=== PATIENT | female | born 1945 | race Caucasian/White ===

== ENCOUNTER → 2023-09-21 12:45 | Outpatient (REF) | payer OTHER, SELFPAY | LOC: HWRAD 12:45 | PROVIDERS: ATTENDING PHYSICIAN Family Medicine | DX: M81.0 Age-related osteoporosis without current pathological fracture (principal) | CPT/HCPCS: 77080 ==

== ENCOUNTER 2023-09-23 03:54 | Emergency (ER) | payer OTHER, SELFPAY ==
[2023-09-23 03:57] VITALS: BP 114/74
[2023-09-23 04:06] VITALS: BMI 23.8
[2023-09-23 04:24] LABS: % Basophils 0.3 % (0-2); % Eosinophils 1.6 % (0-6); % Immature Granulocytes 0.3 % (0-0.5); % Lymphocytes 27.6 % (20.5-51.1); % Monocytes 9.7 % (1.7-9.3); % Neutrophils 60.5 % (42.2-75.2); Absolute Eosinophils 0.1 10^3/uL (0-0.7); Absolute Lymphocytes 2.1 10^3/uL (1.2-3.4); Absolute Monocytes 0.7 10^3/uL (0.1-0.6); Absolute Neutrophils 4.6 10^3/uL (1.4-6.5); Hematocrit 37.8 % (37.0-47.0); Hemoglobin 12.7 g/dL (12.0-16.0); Mean Corp Hgb Conc. 33.6 g/dL (33.0-37.0); Mean Corpuscular Hgb 31.3 pg (27.0-31.0); Mean Corpuscular Volume 93.1 fL (81.0-99.0); Mean Platelet Volume 9.1 fL (7.4-10.4); Nucleated Red Blood Cells % 0 %; Platelet Count 237 10^3/uL (130-400); Red Blood Cell Count 4.06 10^6/uL (4.20-5.40); Red Cell Dist. Width 12.7 % (11.5-14.5); White Blood Cell Count 7.5 10^3/uL (4.8-10.8)
[2023-09-23 04:30] VITALS: BP 111/71
[2023-09-23 04:46] LABS: Troponin I < 0.012 ng/ml
[2023-09-23 05:00] VITALS: BP 113/85
[2023-09-23 05:30] VITALS: BP 114/71
[2023-09-23 05:57] LABS: ALT (SGPT) 21 U/L (0-35); AST (SGOT) 30 U/L (14-36); Albumin 4.1 g/dl (3.5-5.0); Alkaline Phosphatase 100 U/L (38-126); Blood Urea Nitrogen 24 mg/dl (7-17); Calcium 9.8 mg/dl (8.4-10.2); Carbon Dioxide 27 mmol/L (22-30); Chloride 109 mmol/L (98-107); Estimated Creatinine Clearance 62 ml/min; Glucose 103 mg/dl (70-99); Sodium 139 mmol/L (135-145); Total Bilirubin 0.6 mg/dl (0.2-1.3); eGFR > 60.00
[2023-09-23 06:00] VITALS: BP 109/89
--- NOTE | 2023-09-23 06:10 | ED.GENMED ---
History of Present Illness
General
Chief Complaint: Heart Rate Problem
Source: patient and spouse
Time Seen by Provider: 09/23/23 06:00
Travel History
Have you had any contact with someone who has COVID-19?: No
Do you have any symptoms of coronavirus? Fever > 100 degrees, chills, cough, shortness of breath, sore throat, loss of taste or smell, muscle aches, or headache?: No
History of Present Illness
History of Present Illness:
78-year-old female presents emergency department with an episode of what feels like A-fib to her. She felt perfectly well and she went to bed. She awoke at 1 AM to use the restroom and noticed her heart was racing. This has persisted since 1 AM.
She did have left arm disc for about 30 minutes, never chest discomfort. She denies any symptoms at this time. She denies dyspnea, neck pain, headache, dizziness, chest pain or pressure, abdominal pain, neck pain, nausea, vomiting, diaphoresis, or
other complaints. Patient is fully compliant with her medications including her anticoagulation.
Past History
Past History
ED Past Medical History: Arrthythmia (Paroxysmal atrial fibrillation), HTN, Hypercholesterolemia and Hypothyroidism
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
Social History
Tobacco: Non-smoker
Alcohol: Occasional
Personal:
Living: with family
Employment: Retired
Family History
Family History: Other (Noncontributory)
Phy Exam
Physical Exam
Physical Exam:
GENERAL: Alert , in no apparent distress
EYE: pupils equal and reactive
NECK: Supple, no significant adenopathy.
ENT: o/p clr, mmm.
CARDIAC: Irregularly irregular, tachycardic
LUNGS: Clear breath sounds bilaterally, no acute respiratory distress,
ABDOMEN: Soft, without focal tenderness, no r/g, no cvat
NEUROLOGICAL: Alert and oriented, no focal neuro deficits
SKIN: Warm and dry, skin intact.
MUSCULOSKELETAL: No edema, well perfused.
PSYCH: Normal and appropriate interaction.
Course
Orders/Labs/Results
Orders:
Orders
09/23/23 03:56
EKG [Electrocardiogram (*1)] Urgent
Reason for Study: Palpitations
EKG- Treatment ONCE
09/23/23 04:12
Complete Blood Count/With Diff Urgent
Comprehensive Metabolic Panel Urgent
Troponin I Urgent
09/23/23 06:14
EKG [Electrocardiogram (*1)] Urgent
Reason for Study: Atrial Fibrillation
Other Reason for Exam: converted
09/23/23 06:15
EKG- Treatment ONCE
Abnormal Lab Results
09/23/23
04:12
RBC 4.06 L 10^6/uL
(4.20-5.40)
MCH 31.3 H pg
(27.0-31.0)
Absolute Monos (auto) 0.7 H 10^3/uL
(0.1-0.6)
Monocytes % 9.7 H %
(1.7-9.3)
Chloride 109 H mmol/L
(98-107)
BUN 24 H mg/dl
(7-17)
Glucose 103 H mg/dl
(70-99)
09/23/23 04:12
09/23/23 04:12
Vital Signs
Initial and Last Documented VS:
Initial Vital Signs
Temp Pulse Resp BP Pulse Ox
98.2 F 123 16 114/74 96
09/23/23 03:57 09/23/23 03:57 09/23/23 03:57 09/23/23 03:57 09/23/23 03:57
Last Documented Vital Signs
Temp Pulse Resp BP Pulse Ox
98.2 F 73 19 109/89 98
09/23/23 03:57 09/23/23 06:30 09/23/23 06:30 09/23/23 06:00 09/23/23 06:30
*Critical Care Note
Total Time (30-74mins, 75-104mins- exclusive of procedures): Not Applicable
Update Note
Update Note:
Patient presents to the Emergency Department with ___palpitations
Number and Complexity of Problems Addressed at the Encounter
� Chronic conditions affecting care:
� Acute Exacerbation and/or Progression of Chronic Illness:
� Differential Diagnosis includes: But not limited to A-fib, a flutter, SVT, sinus tachycardia, etc.
Amount and/or Complexity of Data to be Reviewed and Analyzed
� I performed an independent evaluation of and my interpretation is:
EKG: Read by me, tachycardia, A-fib, PVC, no acute ischemia
CT:
Xrays:
Laboratory Studies: Unremarkable
Other:
� Review of other/old records reveals:
� Clinical information was obtained by an independent historian:
� Prescriptions/Medications Considered but not given:
� Further testing considered but not performed:
Risk of Complications and/or Morbidity or Mortality of Patient Management
� Social determinants of health affecting care:
� Discussion with other providers (PCP, Hospitalists, Consultants, etc):
� Escalation of care including admission/observation vs risk of discharge considered: 6:27 AM as I was discussing management with patient and , patient noted to spontaneously convert on the monitor, repeat ECG confirms
this, patient is in a normal sinus rhythm, PVC noted, otherwise no abnormalities. Patient will be advised to continue her medications including her DOAC, with prompt cardiology follow-up, no further management recommended or needed at this time.
ED Attending Note
-
Portions of this chart may have been created with voice recognition software.� Occasional wrong word or��sound alike� substitutions may have occurred due to the inherent limitations of voice recognition software.
Discharge Plan
Departure
Patient Disposition: Home (Routine Discharge)
Date of Disposition: 09/23/23
Time of Disposition: 06:26
Patient with high blood pressure during this ER visit?: No
Condition: Good
Discharge Problem:
PAF (paroxysmal atrial fibrillation)
Instructions: Atrial Fibrillation (DC)
Prescriptions:
No Action
levothyroxine 88 MCG tablet
88 mcg PO DAILY AT 0700
Xarelto 20 MG tablet
20 mg PO .5PM
ibandronate 150 MG tablet
150 mg PO .1ST OF EACH MONTH
cyanocobalamin (vitamin B-12) 100 MCG tablet
3,000 mcg PO MOWEFR
Caltrate 600 plus D 1 EACH tablet,chewable
1 ea PO BID
furosemide 20 MG tablet
40 mg PO DAILY Qty: 30 0RF
metoprolol tartrate 75 MG tablet
75 mg PO BID
atorvastatin 40 MG tablet
40 mg PO HS
Women's 50 Plus Daily Formula 1 EACH tablet
1 ea PO DAILY
cholecalciferol (vitamin D3) [Vitamin D3] 25 mcg (1,000 unit) Capsule
25 mcg PO DAILY
Saccharomyces boulardii [Florastor] 250 mg Capsule
250 mg PO BID
iron
65 mg PO DAILY
dofetilide 250 MCG capsule
250 mcg PO BID
Referrals:
Ricardo Mckeon DO [Active] - Next open appointment
Edyta Márquez DO [Family Provider] -
Activity Restrictions/Additional Instructions:
PLEASE CONTINUE TO TAKE YOUR MEDICATIONS PRESCRIBED. IF YOU DEVELOP DIZZINESS, CHEST PAIN OR PRESSURE, PALPITATIONS, VOMITING, TROUBLE BREATHING, OR OTHER WORRISOME SIGNS, PLEASE RETURN TO THE ER IMMEDIATELY.
Interventions
Interventions:
*Risk Screen - Suicide Last Done: 09/23/23 03:57
*General Assessment Last Done: 09/23/23 03:57
*Neglect/Abuse Screening Last Done: 09/23/23 03:57
ED- Fall Risk Assessment Last Done: 09/23/23 03:57
*ED COVID-19 Vaccine History Last Done: 09/23/23 03:57
*Nursing Disposition Last Done: 09/23/23 06:30
ED- Cardiac Assessment Last Done: 09/23/23 04:10
ED- Pulmonary Assessment Last Done: 09/23/23 04:10
Discharge Date and Time
Discharge Date/Time: 09/23/23 06:30
Print Language: VIET[place]ESE
== END 2023-09-23 06:30 | disposition home or self-care (01) ==
LOC: EMR 03:54
PROVIDERS: Emergency Medicine; EMERGENCY PHYSICIAN Emergency Medicine; FAMILY PHYSICIAN Family Medicine
DX: I48.0 Paroxysmal atrial fibrillation (principal); I10 Essential (primary) hypertension; E78.00 Pure hypercholesterolemia, unspecified; E03.9 Hypothyroidism, unspecified; Z79.01 Long term (current) use of anticoagulants; Z88.0 Allergy status to penicillin
CPT/HCPCS: 99284; 80053; 84484; 85025; 93005

== ENCOUNTER → 2023-10-23 10:09 | Outpatient (REF) | payer OTHER, SELFPAY | LOC: HWRCS 10:09 | PROVIDERS: ATTENDING PHYSICIAN Nuclear Medicine Nuclear Cardiology; FAMILY PHYSICIAN Family Medicine | DX: I48.0 Paroxysmal atrial fibrillation (principal) | CPT/HCPCS: 93306 ==

== ENCOUNTER → 2024-10-07 10:07 | Outpatient (REF) | payer OTHER, SELFPAY | LOC: HWRCS 10:07 | PROVIDERS: ATTENDING PHYSICIAN Nuclear Medicine Nuclear Cardiology; FAMILY PHYSICIAN Family Medicine | DX: I48.0 Paroxysmal atrial fibrillation (principal) | CPT/HCPCS: 93306 ==

== ENCOUNTER → 2024-11-05 10:03 | Outpatient (REF) | payer OTHER, SELFPAY | LOC: HWWDC 10:03 | PROVIDERS: ATTENDING PHYSICIAN Family Medicine | DX: Z12.31 Encounter for screening mammogram for malignant neoplasm of breast (principal) | CPT/HCPCS: 77063; 77067 ==

== ENCOUNTER 2024-12-20 04:58 | Inpatient (IN) | payer OTHER, SELFPAY ==
[2024-12-20] VITALS (9 sets, daily range): BP systolic 104–164; BP diastolic 53–76; PULSE 60–72; O2SAT 98–99; BMI 21.3
[2024-12-20 02:20] LABS: Glucose - Point of Care 136 mg/dl (70-99)
[2024-12-20 02:36] LABS: Hematocrit 36.5 % (37.0-47.0); Hemoglobin 12.9 g/dL (12.0-16.0); Mean Corp Hgb Conc. 35.3 g/dL (33.0-37.0); Mean Corpuscular Volume 90.8 fL (81.0-99.0); Nucleated Red Blood Cells % 0 %; Platelet Count 256 10^3/uL (130-400); Red Cell Dist. Width 12.6 % (11.5-14.5)
[2024-12-20 03:01] LABS: ALT (SGPT) 30 U/L (0-35); AST (SGOT) 30 U/L (14-36); Albumin 4.5 g/dl (3.5-5.0); Alkaline Phosphatase 102 U/L (38-126); Blood Urea Nitrogen 26 mg/dl (7-17); Calcium 9.8 mg/dl (8.4-10.2); Carbon Dioxide 22 mmol/L (22-30); Chloride 103 mmol/L (98-107); Estimated Creatinine Clearance 52 ml/min; Glucose 140 mg/dl (70-99); Potassium 4.1 mmol/L (3.5-5.1); Sodium 136 mmol/L (135-145); Total Protein 6.9 g/dl (6.3-8.2); eGFR > 60.00
[2024-12-20 03:16] LABS: Troponin I < 0.012 ng/ml
[2024-12-20 03:39] LABS: Urine Character Clear (Clear)
[2024-12-20 04:08] LABS: Urine White Cell 50-60 /HPF (0-5)
[2024-12-20] MEDS: NSS 1000 IV (04:26)
--- NOTE | 2024-12-20 04:49 | HPS.HSE ---
Family Physician
-
Family Physician: NOT KNOW UNKNOWN - PT DOES
Chief Complaint
-
Unresponsive
History of Present Illness
Patient is a 79y F with PMH significant for A-Fib, hypertension and prior CVA and seizure who presents to ED for evaluation of unresponsive episode. History obtained from patient and at the bedside. Patient states that she was feeling
well this evening upon going to bed. She notes that she had a very busy day today and 'probably did too much'. notes that he woke in the middle of the night to the 'bed shaking terribly'. He turned on the light and checked on the patient
and found her to be unresponsive, breathing heavily and with a trickle of blood from the corner of her mouth. He called 911. Patient remained unresponsive throughout EMS evaluation. She started to become more responsive after arrival here to the
ED.
At the time of my examination, patient is at her baseline. She has no recollection of these events. Her only complaint at present is dry mouth.
Patient has prior history of seizure activity in 2018. 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
Patient states that she was treated with Keppra x 6 months and was then tapered off of this medication.
She has had no issues since that time.
She denies any recent illness. No recent medication changes.
Medical History
Past Medical History
Past Medical History: Reports Other
Additional Past Medical History:
Paroxysmal Atrial Fibrillation
Ascending Aortic Aneurysm
Hypertension
Mitral Regurgitation
Seizure
ASCVD / CVA
Chronic HFpEF
Hypothyroidism
Ocular Migraines
Past Surgical History: Reports Other
Additional Past Surgical History:
Ascending AA Graft
T&A
Partial Hysterectomy
Right Foot Surgery
Social History
Tobacco: Non-smoker
Alcohol: Occasional
Drug: None
Personal:
Living: With Family
Family History
Family History: Not pertinent
Allergies / Home Medications
Allergies reflects when Allergies were last updated in [employer]
Home Medications with original date entered in [employer]
Allergy/Medication List:
Allergies
Allergy/AdvReac Type Severity Reaction Status Date / Time
Penicillins Allergy Severe Throat Verified 12/20/24 02:44
swelling,
closes
Home Medications
levothyroxine 88 mcg tablet 88 mcg PO DAILY AT 0700 Thyroid 04/08/16
rivaroxaban 20 mg tablet (Xarelto) 20 mg PO .5PM Blood clot prevention/tx 04/08/16
ibandronate 150 mg tablet 150 mg PO .1ST OF EACH MONTH OSTEOPOROSIS 04/02/18
calcium 600 mg (as carbonate)-vit D3 20 mcg (800 unit) chewable tablet (Caltrate plus D) 1 ea PO BID Supplement 09/12/21
cyanocobalamin (vitamin B-12) 100 mcg tablet 3,000 mcg PO MOWEFR Supplement 09/12/21
furosemide 20 mg tablet 40 mg (2 x 20 mg) PO DAILY Fluid retention/Swelling #30 tabs 10/07/21
metoprolol tartrate 75 mg tablet 75 mg PO BID Heart disease/condition 10/18/21
atorvastatin 40 mg tablet 40 mg PO HS High cholesterol 11/16/21
rjwypxvo-bdz-jltua ac 400 mcg-calcium carb 500 mg-vit K1 20 mcg tablet (Women's 50 Plus Daily Formula) 1 ea PO DAILY Supplement 11/25/21
iron 65 mg PO DAILY 01/22/23
cholecalciferol (vitamin D3) 25 mcg (1,000 unit) capsule (Vitamin D3) 25 mcg PO DAILY 04/11/23
dofetilide 250 mcg capsule 250 mcg PO BID 09/23/23
Review of Systems
-
History Source: Patient
A 12 point ROS was completed and negative except as noted: Yes
Constitutional: Denies Fever or Chills
EENT: Reports Other (dry mouth)
Respiratory: Denies Cough or Trouble Breathing
Cardiac: Denies Chest Pain or Palpitations
Abdomen/GI: Denies Abdominal Pain, Nausea, Vomiting or Diarrhea
: Denies Dysuria, Frequency or Flank Pain
Musculoskeletal: Denies Joint Pain or Edema
Neurological: Denies Dizzy, Headache, Weakness or Numbness
Psych: Denies Depression or Anxiety
Physical Exam
Vital Signs
Vital Signs
Temp Pulse Resp BP Pulse Ox
98 F 88 22 164/76 93
12/20/24 02:23 12/20/24 02:45 12/20/24 02:45 12/20/24 02:23 12/20/24 02:23
Physical Exam
General: Other (79y F in no acute distress.)
HEENT: Other (Dry MM. Swelling / bruising over the lateral aspects of the tongue - L > R. No active bleeding.)
Respiratory: Clear; No Wheezes, Rales or Rhonchi
Cardiac: S1/S2, Regular Rhythm and Murmur (II/ ABBEY)
GI: Soft, Non Tender, Non Distended and Normal Bowel Sounds
Musculoskeletal: No Clubbing, No Cyanosis and No Edema
Neuro: AO x 3 and Nonfocal/grossly intact
Laboratory Results
-
12/20/24 02:24
12/20/24 02:24
Laboratory Results
Lactic Acid 2.7 mmol/L (0.7-2.0) H 12/20/24 02:24
Total Bilirubin 0.8 mg/dl (0.2-1.3) 12/20/24 02:24
AST 30 U/L (14-36) 12/20/24 02:24
ALT 30 U/L (0-35) 12/20/24 02:24
Alkaline Phosphatase 102 U/L (38-126) 12/20/24 02:24
Troponin I < 0.012 ng/ml 12/20/24 02:24
Impression/Plan
-
A/P: Patient is a 79y F with PMH significant for A-Fib, HTN and prior seizure who presents to ED for evaluation of unresponsive episode.
Seizure
- Admit for further evaluation and treatment.
- History provided by the his highly suspicious / consistent with seizure episode.
- Patient with evidence of tongue trauma - with no ongoing / active bleeding at present.
- Keppra load x 1 now then continue BID.
- Neurology evaluation.
- Seizure precautions / Ativan PRN for further seizure activity.
- CT head done in the ED was unremarkable.
- Check MRI brain in AM for further evaluation.
- Ceribell placed in the ED, but patient asymptomatic / at baseline at present. Complete 60 minutes in the ED and then discontinue if still normal and asymptomatic.
- Routine EEG.
ASCVD / Prior CVA
- Tiny, acute R centrum ovale infarct seen on MRI in 2018 with initial seizure.
- MRI in AM for further evaluation. No focal deficits on exam at present.
Paroxysmal Atrial Fibrillation
- Stable. Continue current med regimen including Tikosyn.
- Continue Xarelto with unremarkable CT head.
Chronic HFpEF
- Stable. No evidence of volume overload at present.
- Hold Lasix acutely.
- Follow I/Os, daily weights, etc.
Benign Hypertension
- Stable. Continue usual medications with holding parameters.
Hypothyroidism
- Continue usual T4 supplementation.
Abnormal UA / Asymptomatic Pyuria
- UA with 50-60 WBC, few bacteria and negative nitrites.
- No urinary symptoms.
- Follow up culture data.
- Follow fever curve / monitor for any new symptoms.
- Observe off of abx for now.
DVT Prophylaxis: On Xarelto
Code Status: Full
--- NOTE | 2024-12-20 04:51 | ED.GENMED ---
History of Present Illness
General
Chief Complaint: Unresponsive
Source: patient
Time Seen by Provider: 12/20/24 02:28
Nursing documentation reviewed up to this point in time: agreed with
History of Present Illness
History of Present Illness:
Note:
CHIEF COMPLAINT(S)
Altered mental status, unusual breathing sounds, disorientation.
HISTORY OF PRESENT ILLNESS
The patient is a 80-year-old female who was found by her family exhibiting altered behavior and making unusual breathing sounds around 9:30 PM. The family described difficulty in waking her up and noted that she was behaving erratically, making
nonsensical sounds initially. After being woken up, the patient seemed disoriented and was not fully coherent, displaying a fluctuation in mental state. During the transport to the emergency department, she gradually began to talk more sensibly,
regaining some orientation. On arrival, she was disoriented to place, indicating she believed she was still at home. The patient denied having a headache, chest pain, shortness of breath, or visual disturbances when questioned.
PHYSICAL EXAM
General: Alert, no acute distress.
Skin: Warm, dry.
Head: Normocephalic, atraumatic.
Neck: Supple, trachea midline.
Eye Ears, nose, mouth, and throat: Oral mucosa moist.
Cardiovascular: Normal peripheral perfusion, no edema.
Respiratory: Respirations are non-labored.
Gastrointestinal: Abdomen nondistended.
Back: Normal range of motion, normal alignment.
Musculoskeletal: Normal range of motion, normal strength.
Neurological: Alert but disoriented to place, oriented to person and time. No focal neurological deficit observed.
Psychiatric: Cooperative, appropriate mood & affect.
PLAN
Further evaluation to ascertain the cause of the altered mental status and unusual breathing patterns. This may include imaging studies and laboratory tests to rule out neurological or metabolic causes. Continuous monitoring of vital signs and
cognitive status is advised.
DIFFERENTIAL DIAGNOSIS
The Differential Diagnosis includes, in no particular order and is not limited to:
1. Transient ischemic attack (TIA)
2. Stroke
3. Hypoglycemia
4. Delirium
5. Seizure activity
6. Infection such as pneumonia or urinary tract infection
7. Medication side effects or toxicity
8. Electrolyte imbalance
9. Dementia exacerbation
10. Cardiac arrhythmia or heart failure exacerbation.
CARE-UPDATE
12/20/24:39
CT of the head shows no acute intracranial findings; continue current management and monitoring.
CARE-UPDATE
12/20/24 - :55
Patient remains in ICU, unable to provide update on current status as Suzette De Santiago is unavailable for consultation. Continue monitoring closely until further assessment or consultation can be conducted.
Disposition:
SUMMARY OF ENCOUNTER
The patient, a 80-year-old female, was brought to the emergency department due to altered mental status observed by her family. She exhibited behaviors including unusual breathing sounds, disorientation, and difficulty in being awakened. Her mental
state fluctuated, but gradually improved during transport to the hospital. On arrival, she was still disoriented to place but oriented to person and time. In the emergency department, initial evaluations included a physical exam and a CT of the
head, which showed no acute intracranial findings. Management focused on monitoring her cognitive status and vital signs while further evaluations were considered to determine the cause of her symptoms.
DISPOSITION
Admit.
PLAN
The patient will be admitted to the hospital for further monitoring and evaluation of her altered mental status and unusual breathing patterns. Continuous observation of vital signs and cognitive status will be maintained. Additional imaging studies
and laboratory tests may be conducted to rule out potential neurological or metabolic causes.
DIAGNOSIS
Altered mental status, R41.82; Disorientation, R41.0; Suspected episodic seizure activity, R56.9.
Past History
Past History
ED Past Medical History: Arrthythmia (Paroxysmal atrial fibrillation), HTN, Hypercholesterolemia and Hypothyroidism
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
Social History
Tobacco: Non-smoker
Alcohol: Occasional
Personal:
Living: with family
Employment: Retired
Family History
Family History: Other (Noncontributory)
Phy Exam
Physical Exam
Physical Exam:
.
General Physical Exam
General Presentation: well appearing and no apparent distress
General Skin: warm and dry
General Habitus: normal
General Mental: alert
General Hydration: appears well hydrated
ENT Exam
ENT Exam: EOMI, pharynx normal, neck supple and normocephalic
Eye Exam
Eye Exam: PERRL, cornea clear and conjunctiva normal
Cardiovascular Exam
Cardiovascular Exam: regular rate/rhythm, no edema, no murmur and normal peripheral pulses
Pulmonary Exam
Pulmonary Exam: lungs clear, no respiratory distress, no rales, no crackles, no rhonchi, no stridor, no wheezing and no cough
Gastrointestinal Exam
Gastrointestinal Exam: normal bowel sounds, non tender, soft, no organomegaly, no pulsatile mass and non distended
Neurological Exam
Neurological Exam: alert, oriented x3, no motor deficits and speech normal
Musculoskeletal Exam
Musculoskeletal Exam: full ROM and no edema
Skin Exam
Skin Exam: normal color, warm/dry, no rash and no petechia
Psychiatric Exam
Psychiatric Exam: normal mood/affect
Course
Orders/Labs/Results
Orders:
Orders
12/20/24 02:18
CT BRAIN PERF STROKE ALERT Urgent
Comment:
Reason For Exam: STROKE ALERT
CT HEAD STROKE ALERT W/o Cont Urgent
Comment:
Reason For Exam: STROKE ALERT
CT HEAD/NECK ANG STROKE ALERT Urgent
Comment:
Reason For Exam: STROKE ALERT
12/20/24 02:19
Electrocardiogram (*1) Urgent
Reason for Study: Other
Other Reason for Exam: Possible Sepsis
Cardiac Monitoring- Treatment ONCE
EKG- Treatment ONCE
IV Insert/Care/Rem.- Treatment PRN
CR Chest - 2 Views Urgent
Comment:
Reason For Exam: suspected infection
O2 Therapy [RESP] Urgent
Titrate/Wean O2 to maintain O2 sat greater than (%): 93
Special Instructions: TO MAINTAIN CONTINUOUS O2 SATS > OR = 93%
Pulse Ox/cont/shift [RESP] Urgent
Quantity: 1
Special Instructions: CONTINUOUS
12/20/24 02:24
Complete Blood Count/With Diff Urgent
Comprehensive Metabolic Panel Urgent
Lactic Acid Q4H
Comment: ON ICE, CANCEL 2ND ORDER IF FIRST LACTIC ACID LEVEL <2
Pro-BNP [NT-proBNP] Urgent
Troponin I Urgent
12/20/24 03:07
Urinalysis Reflex To Culture Urgent
Date Specimen was Collected: 12/20/24
Time Specimen was Collected: 02:19
Urine Microscopic Reflex Cult Urgent
Urine Culture Urgent
KANDY Source: U
Specimen Description:
Date Specimen was Collected: 12/20/24
Time Specimen was Collected: 02:19
12/20/24 04:21
0.9% Sodium Chloride 1000 ml [Nss] 1,000 ml IV BOLUS
12/20/24 04:24
Ceribell [Rapid Point of Care EEG (ED/ICU ONLY)] Q1H
Indications for use:: Altered Mental Status
12/20/24 04:42
Levetiracetam Injectable [Keppra] 1,000 mg IV NOW STA
12/20/24 04:43
Admit/Transfer Patient As Directed
Co-Sign Provider:
Level of Care: Inpatient admission
Assign to:: Telemetry
Physician / Group: Manpreet
Diagnosis: Seizure
Reason for Telemetry: Arrhythmia
Date to Stop Telemetry: 12/23/24
Time to Stop Telemetry: 11:00
Reason for Hospitalization: Seizure
Expected length of stay greater than two midnights?: Yes
ELOS- Estimated Length of Stay in days: 2
I certify the patient meets the requirements for IP care: Yes
PRN Pain Medication Management As Directed
May give lesser potent ordered pain med per pt: Yes
preference::
Protocol:: Medication orders for pain may be administered in a
manner that supports deferring to patient preference
when the pt is:
- Requesting an ordered lesser potent pain medication.
Least to most potent pain medications are defined
as: acetaminophen < NSAID < tramadol < opioids
(morphine, oxycodone, hydromorphone).
- Requesting a lesser dose of the same medication IF
ORDERED.
- Requesting a less intrusive route of administration
if both routes are prescribed by the provider (PO <
IV).
12/20/24 04:46
Code Status As Directed
Resuscitation Status: Full Code
12/20/24 Breakfast
Clear Liquid
At Your Request: Limited, Visitor Services Associate Required
Does patient need a safe tray?: No
12/20/24 06:19
Acetaminophen [Tylenol] 650 mg PO Q4HPRN PRN
Lorazepam [Ativan] 2 mg IV Q4HPRN PRN
12/20/24 06:19
Consult Notification Routine
Specialty to Notify: Neurology
Date consulting provider notified: 12/20/24
Time consulting provider notified: 08:20
Notified:: Provider
Comment: tt sent
NEUROLOGY CONSULT Routine
Consulting Provider: Vishnu Francis
Was physician already notified: No
Reason for consult: Seizure
Activity As Directed
Activity Level: Ambulate
With Assistance
EKG with chest pain [ECG as needed] As Directed
ECG as needed for:: Chest Pain
I/O [Intake/ Output] As Directed
Frequency: Per unit guidelines
Neurological Checks As Directed
Frequency: q4h
Precautions As Directed
Type of Precautions: Seizure
Vital Signs As Directed
Frequency: Per unit guidelines
Weight As Directed
Frequency: Daily
Oxygen Therapy [O2 Therapy] [RESP] Routine
Titrate/Wean O2 to maintain O2 sat greater than (%): 94
12/20/24 06:30
Levothyroxine [Synthroid] 88 mcg PO DAILY @ 0600
12/20/24 07:55
Glycohemoglobin (HgbA1c) Routine
Lactic Acid Q4H
Comment: ON ICE, CANCEL 2ND ORDER IF FIRST LACTIC ACID LEVEL <2
TSH Reflex To Free T4 Routine
12/20/24 08:00
Dofetilide [Tikosyn] 250 mcg PO BID
Levetiracetam [Keppra] 500 mg PO BID
Metoprolol [Lopressor] 75 mg PO BID
12/20/24 17:00
Rivaroxaban [Xarelto] 20 mg PO DAILY@1700
12/20/24 22:00
Atorvastatin [Lipitor] 40 mg PO HS
12/23/24 11:00
DC Protocol for Telemetry ONCE
Abnormal Lab Results
12/20/24 12/20/24 12/20/24
02:18 02:24 03:07
RBC 4.02 L 10^6/uL
(4.20-5.40)
Hct 36.5 L %
(37.0-47.0)
MCH 32.1 H pg
(27.0-31.0)
Absolute Monos (auto) 0.9 H 10^3/uL
(0.1-0.6)
Monocytes % 9.8 H %
(1.7-9.3)
BUN 26 H mg/dl
(7-17)
Glucose 140 H mg/dl
(70-99)
Lactic Acid 2.7 H mmol/L
(0.7-2.0)
Ur Occult Blood Reflex 1+ A
(Negative)
Leukocyte Esterase Rfl 3+ A
(Negative)
Urine RBC 3-6 A /HPF
(0-2)
Urine WBC (Reflex) 50-60 A /HPF
(0-5)
Urine Bacteria (Reflex) Few A
(Negative)
Urine Albumin (Reflex) 2+ A
(Neg - Trace)
POC Glucose 136 H mg/dl
(70-99)
12/20/24 02:24
12/20/24 02:24
Vital Signs
Initial and Last Documented VS:
Initial Vital Signs
BP
164/76
12/20/24 02:19
Last Documented Vital Signs
Temp Pulse Resp BP Pulse Ox
98.8 F 62 18 114/60 97
12/20/24 15:06 12/20/24 15:06 12/20/24 15:06 12/20/24 15:06 12/20/24 15:06
*Pulse Oximetry
SaO2: 93
Oxygen Mode of Delivery: Room air
Patient hypoxic: no
*Critical Care Note
Total Time (30-74mins, 75-104mins- exclusive of procedures): Not Applicable
ED Attending Note
-
Portions of this chart may have been created with voice recognition software.� Occasional wrong word or��sound alike� substitutions may have occurred due to the inherent limitations of voice recognition software.
Discharge Plan
Departure
Patient Disposition: Admit
Date of Disposition: 12/20/24
Time of Disposition: 04:52
Presentation/result/management discussed w/ accepting MD/DO: Hospitalist
Discharge Problem:
Unresponsive
Interventions
Interventions:
*Risk Screen - Suicide Last Done: 12/20/24 02:23
*General Assessment Last Done: 12/20/24 02:31
*Neglect/Abuse Screening Last Done: 12/20/24 02:23
*ED- Fall Risk Assessment Last Done: 12/20/24 02:31
*ED COVID-19 Vaccine History Last Done: 12/20/24 02:31
*Nursing Disposition Last Done: 12/20/24 06:14
ED- Neurological Assessment Last Done: 12/20/24 02:31
Discharge Date and Time
Discharge Date/Time: 12/20/24 06:15
[2024-12-20] MEDS: KEPPRA 1000 MG IV (05:17)
[2024-12-20] MEDS: SYNTHROID 88 MCG PO (06:45)
[2024-12-20] MEDS: LOPRESSOR 75 MG PO (08:15)
[2024-12-20] MEDS: KEPPRA 500 MG PO (08:15)
[2024-12-20] MEDS: TIKOSYN 250 MCG PO (08:16)
[2024-12-20 08:47] LABS: Glycohemoglobin (HgbA1c) 4.9 % (4.0-5.6)
--- NOTE | 2024-12-20 09:17 | CON.NEURO4 ---
Addendum entered and electronically signed by Vishnu Francis MD 12/20/24 12:42:
Studies reviewed.
I have personally examined the patient. I reviewed and agree with the IT HELP DESK TECHNICIAN's Note.
My addenda:
Awake, alert, interactive. No acute distress.
Speech intact.
Follows 2-step requests w/o difficulty. No tremor.
Extra-ocular movements grossly intact.
Facial movements full and symmetric. Hearing intact to normal conversational volume.
Normal UE movements bilaterally.
Neck: full ROM.
Chest: no dyspnea
Heart: no JVD
Ext: (-) Clubbing, (-) Cyanosis, (-) Edema
IMPRESSIONS/RECOMMENDATIONS:
Abrupt onset of seizure from sleep. Patient has a prior known right centrum semiovale ischemic stroke in 2018 and had gone seizure-free for 3 years before prior discontinuance of antiseizure medication.
No indication for reporting to [facility] due to the patient having a nocturnal seizure which is not reportable
Restart patient on lacosamide 100 mg twice a day, patient had tolerated same in the past
Eventual consideration for repeated EEG if new events occur
Consideration for diagnostic polysomnogram as outpatient as the patient has routine awakenings from sleep
We will follow MRI of brain findings
D/W patient
All questions answered.
Will continue to follow as outpatient.
Original Note:
Documented by User: Cheryl Quach NP 12/20/24 11:29
Consultation - Neurology 4
-
CONSULTING PHYSICIAN: Vishnu Francis MD
REFERRING PHYSICIAN: Hospitalists/Dr. Case
DICTATED BY: MARISOL Galindo
DATE/TIME OF REQUEST: 12/20/24
DATE/TIME OF CONSULTATION: 12/20/24
Reason for Consultation: Seizure
History of Present Illness:
This is a 79-year-old female who has presented to the hospital with report of nocturnal seizure. Patient is known to our Neurology service from a nocturnal seizure in the setting of an acute R centrum semiovale infarct in 2018. She was following
with Neurology Dr. Pena as an outpatient until about 2020.
From last outpatient encounter by Neurology Dr. Pena on 08/19/2020:
'75 year-old female presents for evaluation for seizure and stroke. She has a history of afib and is on Xarelto and atorvastatin (the latter of which was increase during her hospitalization). She was recently admitted at [facility] in late March
2017 for first time seizure which occurred out of sleep. MRI brain showed an acute right centrum semiovale lacunar infarct, likely sustained during seizure with possible hypertensive episode. MRA neck showed no evidence of ICA stenosis or occlusion.
Mild beaded appearance of the prox and mid right ICA raised suspicioin for mild fibromuscular dysplasia. 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 MRA table [place] showed mild amt of athero in the anterior circulation. Echo showed no CSE. Her
exam was normal. She was started on Keppra 500mg BID. EEG showed diffuse slowing. Form was sent to [facility]. She has had no futher seizures since discharge.
�������10/08/18: Since her last appt, she has been taking Keppra 500mg twice daily and has been seizure free. Her LDL has been at/near goal in May (69) and earlier this month (72). She denies any mood issues or side effects on Keppra.
�������04/09/19: Since her last appt, she was found to have an elevated alk phos level on Keppra. I switched her to Vimpat on which she has been seizure free but has not been covered by insurance. She has been getting samples from our office.
�������From appt with Mimi Hwang,05/20/2020'
�������'Since her last appt she has been seizure free. She has been tolerating Vimpat well, but is anxious to have it discontinued. No new stroke symptoms. She continues to take Xarelto and atorvastatin.'
�������24 hour EEG completed 04/13/2020-normal
�������INTERVAL HX: She tapered off Vimpat and has remained seizure free. 62 min EEG done on 2/22/21 was normal and was done while off Vimpat. No concern for further stroke symptoms.'
Patient reports that yesterday (12/19/24), she had a busier day than usual and was on the go for most of the day. She went to bed with her around 2130. Around 0200 this morning, her awoke due to feeling the bed shaking, turned on the
light, and found her unresponsive, breathing heavily, with some blood coming from the right side of her mouth. He called 911. On arrival in the ER, her speech was garbled, prompting them to activate a stroke alert. CT head, CTA head/neck, and CT
perfusion were obtained and were negative for any acute abnormalities. [employer] EEG monitor was applied and was negative. She was given IV levetiracetam. She was not a candidate for TNK/IAT due to Xarelto usage and no LVO.
Today (12/20/24), patient reports that she feels back to her baseline. She does not recall the events of last night but remembers being in the ER and onward. She notes that the right side of her tongue hurts, but she did not lose control of bowel or
bladder. She reports that she successfully weaned off of lacosamide in 2019 and had no further signs of seizure until today. She denies any headache, dizziness, speech/swallow difficulty, numbness, and weakness.
Past Medical History: Paroxysmal Afib (Xarelto), nocturnal seizures, R centrum semiovale ischemic stroke 2018, hx elevated alk phos on Keppra, ocular migraines, AAA, HTN, mitral regurgitation, CAD, HFpEF, hypothyroidism, osteoporosis, colon
polyps, ovarian mass
Surgical History: Partial hysterectomy, AAA repair, tonsillectomy, vaginal cyst removed, R foot surgery
Family History: Reviewed and noncontributory.
Social History: Denies tobacco, alcohol, and illicit drug use.
Allergies: Penicillins.
Home Medications: See below.
Review of Symptoms:
Patient denies any fever, headache, chest pain, shortness of breath, GI or symptoms.
�Per the HPI.�All systems are reviewed negative except above.
Physical Exam:
The patient is afebrile, abdomen is nondistended, breathing is unlabored, skin is warm and dry, no edema.
Neurologic Examination:
The patient is awake, alert and oriented x 3. She is able to follow commands and answer questions appropriately. There is no aphasia or dysarthria. On cranial nerve assessment, pupils are 3 mm bilateral, round and reactive to light and
accommodation. Visual vargas are full. Extraocular movements are mildly reduced with upgaze. Facial sensations are intact and bilaterally symmetrical, there is no facial asymmetry. Hearing is intact bilaterally to normal conversation volume. Tongue
palate and uvula are midline. Sternocleidomastoid strengths are full bilaterally. Motor strengths are 5/5 bilateral upper and lower extremities on medical research [place] scale. There is no drift or involuntary movement noted. Deep tendon reflexes
are 2+ bilateral upper and lower extremities and Babinski is absent bilaterally. There was no extinction noted on double simultaneous stimulation. Coordination is intact by finger to nose bilaterally.
Lab Results: See below.
Neuro Imaging:
1. CT Head 12/20/24: No CT evidence for acute intracranial hemorrhage or transcortical infarct. Mild to moderate diffuse cerebral and cerebellar volume loss. Mild white matter leukoaraiosis. ASPECT score: 10.
2. 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 Less than 50% diameter stenosis in the proximal right ICA. 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
3. CT Perfusion 12/20/24: CBF 0.
Differentials for the patient's presentation include:
1. Nocturnal generalized seizure in the setting of a former similar event in 2018, weaned off of lacosamide in 2019.
2. History of R centrum semioval ischemic stroke.
3. History of elevated alk phos while on levetiracetam.
Patient has the following risk factors for their symptoms: Hx seizure
Recommendations:
-Restart previous lacosamide 100mg every 12 hours.
-Avoid levetiracetam usage, medication stopped.
-Routine EEG pending.
-MRI Brain w/ and w/o contrast pending.
-Due to both seizure events taking place during sleep, no driving restrictions.
-Would maintain antiseizure medication indefinitely as nocturnal seizures are more likely to recur.
-DVT prophylaxis.
-Follow-up with Vascular Surgery as an outpatient regarding L ICA moderate stenosis.
-Follow-up with Neurology as an outpatient.
Discussed patient care with: Dr. Francis, the patient
Vital Signs and Labs
-
Vital Signs and Labs:
Vital Signs
Temp Pulse Resp BP Pulse Ox
98.0 F 74 16 104/55 96
12/20/24 07:54 12/20/24 07:54 12/20/24 07:54 12/20/24 07:54 12/20/24 07:54
Lab Results
12/20/24 02:24
12/20/24 02:24
Sodium 136 mmol/L (135-145) 12/20/24 02:24
Potassium 4.1 mmol/L (3.5-5.1) 12/20/24 02:24
BUN 26 mg/dl (7-17) H 12/20/24 02:24
Glucose 140 mg/dl (70-99) H 12/20/24 02:24
Calcium 9.8 mg/dl (8.4-10.2) 12/20/24 02:24
Sfn-M-Gpkoimmxgew Pept 1260 pg/ml 12/20/24 02:24
Medications
-
Active Medications
Generic Name Dose Route Start Last Admin
Trade Name Freq PRN Reason Stop Dose Admin
Acetaminophen 650 mg 12/20/24 06:19
Acetaminophen 325 Mg Tablet PO 01/17/25 06:18
Q4HPRN PRN
Mild Pain / Temp > 101
Atorvastatin Calcium 40 mg 12/20/24 22:00
Atorvastatin (Lipitor) 40 Mg Tablet PO 01/17/25 21:59
HS PENNY
Dofetilide 250 mcg 12/20/24 08:00 12/20/24 08:16
Dofetilide 250 Mcg Capsule PO 01/17/25 07:59 250 mcg
BID PENNY Administration
Lacosamide 100 mg 12/20/24 08:30 12/20/24 09:30
Lacosamide (Vimpat) 100 Mg Tablet PO 01/17/25 08:29 100 mg
BID PENNY Administration
Levothyroxine Sodium 88 mcg 12/20/24 06:30 12/20/24 06:45
Levothyroxine 88 Mcg Tablet PO 01/17/25 06:29 88 mcg
DAILY @ 0600 PENNY Administration
Lorazepam 2 mg 12/20/24 06:19
Lorazepam 2 Mg/Ml Vial IV 01/17/25 06:18
Q4HPRN PRN
Seizure activity
Metoprolol Tartrate 75 mg 12/20/24 08:00 12/20/24 08:15
Metoprolol 25 Mg Regular Release Tablet PO 01/17/25 07:59 75 mg
BID PENNY Administration
Rivaroxaban 20 mg 12/20/24 17:00
Rivaroxaban 20 Mg Tablet PO 01/17/25 16:59
DAILY@1700 PENNY
Sodium Chloride 0 flush 12/20/24 07:00
Sodium Chloride 0.9% (Flush) Syringe IV 01/17/25 06:59
PER PROTOCOL PENNY
Sodium Chloride 1 ml 12/20/24 06:23
Nss (Pf) 10 Ml Vial For Ativan 2 Mg Dose IV 01/17/25 06:22
Q4HPRN PRN
IV LORAZEPAM DILUTION
Home Medications
�Medication �Instructions �Recorded
levothyroxine 88 mcg tablet 88 mcg PO DAILY AT 0700 Thyroid 04/08/16
rivaroxaban 20 mg tablet (Xarelto) 20 mg PO .5PM Blood clot 04/08/16
prevention/tx
ibandronate 150 mg tablet 150 mg PO .1ST OF EACH MONTH 04/02/18
OSTEOPOROSIS
calcium 600 mg (as carbonate)-vit 1 ea PO BID Supplement 09/12/21
D3 20 mcg (800 unit) chewable
tablet (Caltrate plus D)
cyanocobalamin (vitamin B-12) 100 3,000 mcg PO MOWEFR Supplement 09/12/21
mcg tablet
furosemide 20 mg tablet 40 mg (2 x 20 mg) PO DAILY Fluid 10/07/21
retention/Swelling #30 tabs
metoprolol tartrate 75 mg tablet 75 mg PO BID Heart 10/18/21
disease/condition
atorvastatin 40 mg tablet 40 mg PO HS High cholesterol 11/16/21
jmlkeqvn-crz-kxdpl ac 400 1 ea PO DAILY Supplement 11/25/21
mcg-calcium carb 500 mg-vit K1 20
mcg tablet (Women's 50 Plus Daily
Formula)
iron 65 mg PO DAILY 01/22/23
cholecalciferol (vitamin D3) 25 25 mcg PO DAILY 04/11/23
mcg (1,000 unit) capsule (Vitamin
D3)
dofetilide 250 mcg capsule 250 mcg PO BID 09/23/23
NIH Stroke Score
Subsequent NIH Scale
Date of Subsequent NIH Scale: 12/20/24
Time of Subsequent NIH Scale: 09:45
NIH Stroke Score
Level of Consciousness: 0 - Alert
LOC Questions: 0-Answers both correctly
LOC Commands: 0-Performs both correctly
Best Horizontal Gaze: 0-Normal
Visual Vargas: 0=Normal, no visual loss
Facial Palsy: 0=Normal, symmetrical
Motor - Right Arm: 0=No drift 10 seconds
Motor - Left Arm: 0=No drift 10 seconds
Motor - Right Le-No drift 5 seconds
Motor - Left Le-No drift 5 seconds
Limb Ataxia: 0-Absent
Sensation: 0-Normal
Best Language: 0-No aphasia
Dysarthria: 0-Normal
Extinction and Inattention: 0-No abnormality
NIH Total Score:: 0
Modified [place] (mRS) Score
Modified [place] Scale (mRS): No symptoms
Score: 0
Alteplase Contraindication
Inclusion and Exclusion criteria reviewed: Yes

Documented by User: Vishnu Francis MD 12/20/24 12:37
NIH Stroke Score
NIH Stroke Score
NIH Total Score:: 0
Modified Jd (mRS) Score
Score: 0
[2024-12-20] MEDS: VIMPAT 100 MG PO (09:30)
[2024-12-20 09:44] LABS: Hepatitis C Antibody Negative (Negative)
--- NOTE | 2024-12-20 10:39 | W.PN.UPDATE ---
Update Note
Progress Note Update
Non billable note
seizure episode - mentation back to normal. not voicing any issues. MRI brain pending. F/us with Dr Pena. Got delores in ER, swithced to Vimpat which in past have controlled patient seizure, of note patient was weaned off of AED by primary
neurologist.
PT/OT evaluation ordered, patient reported to be quite independent and not needing any assistance. Walks her dog and does 5k steps daily
Possible discharge later to back to home if MR brain did not show any new issues.
--- NOTE | 2024-12-20 11:20 | W.RAPID.EEG ---
Rapid EEG
-
Procedure Date: 12/20/24
Results:
Point of Care EEG Procedure Note
Patient name: MARYCRUZ BENAVIDES
Medical ID: [id number]
Date of : 1945
Age: 79
IMPRESSION:
No evidence of status epilepticus.
Clinical correlation is advised.
Recording 1 Duration: 2024-12-20 04:32:53 - 2024-12-20 05:25:11
Recording Total Time: 00:52:18 (52 minutes)
Ordering Physician: DR. ANTONY
Recording Technique: This EEG was obtained using a 10 lead, 8 channel circumferential rapid EEG with no parasagittal coverage.
Performed with Carlos Kearns Status Epilepticus Monitor, ICD-10 [id number]
Clinical History: MARYCRUZ BENAVIDES is a 79 year old Other, Undifferentiated AMS, Other: UNRESPONSIVE patient undergoing EEG to screen for non-convulsive status epilepticus.
Primary Indication: Other, Undifferentiated AMS, Other: UNRESPONSIVE
Location: ED
Background: The background was continuous and reactive
Report prepared by: Matthew Francis
Report generated on: Dec 20, 2024 11:20 AM [facility]
--- NOTE | 2024-12-20 12:18 | CM ---
CM reviewed chart, patient seen bedside with , initial assessment completed. Patient resides with in a multiple story home, three steps to enter. Patient denies use of DME, denies VN/SNF. Patient confirms PCP Edyta Márquez, pharmacy
[facility]. Patient confirms prescription coverage, denies insecurities at home. IMM verbally reviewed with patient, declines need for copy, placed in chart. Patient plan remains home no needs. CM will continue to follow for all discharge planning
needs.
Plan; home no needs
--- NOTE | 2024-12-21 17:12 | W.DCSUMMARY ---
Discharge Summary
Discharge Data
Date of Admission: 12/20/24
Date of Discharge: 12/20/24
-
Pending Results: No
Hospital Course
Discharging Physician : Dr Dwayne Hagan
Disposition : Home
Primary care physician : Unknown
Principal Discharge diagnosis :
Seizure episode
Chronic Discharge diagnosis :
History of seizure disorder
Paroxysmal atrial fibrillation on Xarelto
Ascending aortic aneurysm
Essential hypertension
History of stroke
Chronic diastolic heart failure
Hypothyroidism
History of ocular migraines
Osteoporosis
Hospital Course :
Patient is 79-year-old female with above-mentioned past medical history was brought in by spouse after patient was noticed to having generalized shaking concerning for seizure. Patient does have history of previous seizure and has been taken off of
AED by primary neurologist and patient has done fairly well. Patient was brought into ER by EMS and was noted to be encephalopathic. A CT head and CTA head and neck was done which ruled out any CVA. Patient had [id number] EEG ([place] groupibell Device)
and status epilepticus was ruled out. Patient was given IV Keppra by ER physician. Neurology evaluated patient in the morning and recommended for patient to be resumed back on home dose of Vimpat. Follow-up MRI brain was done which ruled out any
acute abnormality/stroke. Patient was discharged home at this point with plan to follow-up with primary neurology in office.
Important imaging findings :
None
Procedure findings :
None
Discharge Plan
-
Patient Disposition: Home (Routine Discharge)
Discharge Diagnosis/Procedures: Seizure episode
Condition: Fair
Diet: Regular
Activity: As tolerated
Driving Restrictions: No driving
Bathing Restrictions: OK to Shower
Referrals:
Vishnu Francis MD [Active, Neurology] - in three to four weeks
UNKNOWN - PT DOES,NOT KNOW [Family Provider]
Prescriptions:
New
lacosamide [Vimpat] 100 mg tablet
100 mg PO BID Qty: 60 1RF
Continued
levothyroxine 88 MCG tablet
88 mcg PO DAILY AT 0700
Xarelto 20 MG tablet
20 mg PO .5PM
ibandronate 150 MG tablet
150 mg PO .1ST OF EACH MONTH
cyanocobalamin (vitamin B-12) 100 MCG tablet
3,000 mcg PO MOWEFR
Caltrate 600 plus D 1 EACH tablet,chewable
1 ea PO BID
furosemide 20 MG tablet
40 mg PO DAILY Qty: 30 0RF
metoprolol tartrate 75 MG tablet
75 mg PO BID
atorvastatin 40 MG tablet
40 mg PO HS
Women's 50 Plus Daily Formula 1 EACH tablet
1 ea PO DAILY
cholecalciferol (vitamin D3) [Vitamin D3] 25 mcg (1,000 unit) Capsule
25 mcg PO DAILY
iron
65 mg PO DAILY
dofetilide 250 MCG capsule
250 mcg PO BID
Discharge Orders:
Discharge Patient (As Directed); Ordered 12/20/24
Ordered By: Dwayne Hagan
Discharge Date and Time
Discharge Date/Time: 12/20/24 16:34
Print Language: [place]ET[place]
== END 2024-12-20 16:34 | disposition home or self-care (01) | DRG 101 ==
LOC: 4 WEST ACU 04:58
PROVIDERS: ADMITTING PHYSICIAN Hospitalist; ATTENDING PHYSICIAN Hospitalist; CONSULT PHYSICIAN Psychiatry & Neurology Neurology; EMERGENCY PHYSICIAN Student in an Organized Health Care Education/Training Program
PROC: XX20X89 Monitoring of Brain Electrical Activity, Computer-aided Detection and Notification, New Technology Group 9 (ICD-10-PCS; 2024-12-20)
DX: R56.9 Unspecified convulsions (principal); I50.32 Chronic diastolic (congestive) heart failure; G93.40 Encephalopathy, unspecified; R41.82 Altered mental status, unspecified; E03.9 Hypothyroidism, unspecified; E78.00 Pure hypercholesterolemia, unspecified; I11.0 Hypertensive heart disease with heart failure; I48.0 Paroxysmal atrial fibrillation; M81.0 Age-related osteoporosis without current pathological fracture; I34.0 Nonrheumatic mitral (valve) insufficiency; I71.21 Aneurysm of the ascending aorta, without rupture; I25.10 Atherosclerotic heart disease of native coronary artery without angina pectoris; G43.109 Migraine with aura, not intractable, without status migrainosus; Z88.0 Allergy status to penicillin; Z79.01 Long term (current) use of anticoagulants; Z86.73 Personal history of transient ischemic attack (TIA), and cerebral infarction without residual deficits; Z79.890 Hormone replacement therapy; Z86.0100 Personal history of colon polyps, unspecified; Z90.711 Acquired absence of uterus with remaining cervical stump
CPT/HCPCS: 0042T; 70450; 70496; 70498; 70553; 71046; 80053; 81003; 81015; 82962; 83036; 83605; 83880; 84443; 84484; 85025; 86803; 87086; 93005; 94760; 96360; 97161; 97166; 97535; 99285; A9575; Q9967

== ENCOUNTER → 2025-03-17 10:35 | Outpatient (REF) | payer OTHER, SELFPAY | LOC: DHVS 10:35 | PROVIDERS: ATTENDING PHYSICIAN Surgery Vascular Surgery; FAMILY PHYSICIAN Family Medicine | DX: I65.23 Occlusion and stenosis of bilateral carotid arteries (principal) | CPT/HCPCS: 93880 ==